=== PATIENT | male | born 1945 | race Two or more races ===

== ENCOUNTER 2018-05-08 16:08 | Inpatient (IN) | payer OTHER, MEDICAID ==
[~2018-05-08] VITALS: Ht 177.8 cm; Wt 83.9 kg
[2018-05-08] MEDS ORDERED: SODIUM CHLORIDE 0.9% 1,000 ML IV ONE ×3 (16:45→20:39)
[2018-05-08 17:33] LABS: BG BASE EXCESS -23.6 mmol/L (-2.0-2.0); BG CARBOXYHEMOGLOBIN 0.5 % (0.5-1.5); BG METHEMOGLOBIN 0.2 % (0.0-1.5); BG OXYHEMOGLOBIN 96.3 % (94.0-97.0); BG PCO2 13.2 mmHg (35.0-45.0); BG PH 7.097 (7.350-7.450); BG PO2 120.2 mmHg (75.0-100.0); BG SAMPLE SITE RIGHT BRACHIAL; BG TOTAL HEMOGLOBIN 10.6 g/dL (12.0-18.0); BG VENT MODE ROOM AIR
[2018-05-08 17:41] LABS: HEMATOCRIT. 35.8 % (42.0-52.0); HEMOGLOBIN. 10.3 g/dL (14.0-18.0); MEAN CORPUSCULAR HEMOGLOBIN 27.9 pg (28.0-32.0); MEAN CORPUSCULAR VOLUME 97.3 fL (80.0-94.0); MEAN PLATELET VOLUME 10.2 fl (7.4-10.4); PLATELET 209 x1000/uL (130-400); RED BLOOD CELL COUNT 3.68 mill/uL (4.7-6.1); RED CELL DISTRIBUTION WIDTH 16.6 % (11.6-14.6)
[2018-05-08 17:48] LABS: CHLORIDE 89 mEq/L (98-107); INR 1.1; PARTIAL THROMBOPLASTIN TIME 27.5 sec (23.4-31.0); PROTHROMBIN TIME 10.9 sec (9.1-11.1)
[2018-05-08 17:52] LABS: ETHANOL BLOOD < 10 mg/dL
[2018-05-08 17:58] LABS: PLATELET ESTIMATE NORMAL
[2018-05-08] MEDS ORDERED: FUROSEMIDE 100MG/10ML VIAL IV STA (18:03)
[2018-05-08] MEDS ORDERED: INSULIN REGULAR (DRIP) 100 UNITS in SODIUM CHLORIDE 0.9% 99 ML IV SCH (18:15)
[2018-05-08] MEDS ORDERED: SODIUM BICARBONATE 8.4% 1 MEQ/ML 50ML SYR IV ONE (18:15)
[2018-05-08] MEDS ORDERED: INSULIN REGULAR (HUMULIN R) 300UNITS/3ML IV ONE (18:15)
[2018-05-08] MEDS ORDERED: ALBUTEROL (0.083%) 2.5MG/3ML NEB HHN ONE (18:15)
[2018-05-08] MEDS ORDERED: ONDANSETRON HCL 4MG/2ML INJ IV PRN (18:45)
[2018-05-08] MEDS ORDERED: ACETAMINOPHEN 325MG TABLET PO PRN (18:45)
[2018-05-08] MEDS ORDERED: ENOXAPARIN 40MG/0.4ML SYR SUBCUT SCH (18:45)
[2018-05-08] MEDS ORDERED: MAGNESIUM/ALUMINUM HYDROXIDE/SIMETHICONE 30ML UDC PO PRN (18:45)
[2018-05-08 19:31] LABS: BETA HYDROXYBUTYRATE 13.3 mMol/L (0.0-0.3)
[2018-05-08] MEDS ORDERED: PIPERACILLIN/TAZ 3.375G PREMIX 50 ML IV ONE (21:00)
[2018-05-08] MEDS ORDERED: SODIUM CHLORIDE 0.9% 1000ML BAG (SEPSIS BOLUS) IV ONE (21:00)
[2018-05-08] MEDS ORDERED: VANCOMYCIN 1 G PREMIX 200 ML IV ONE (22:45)
[2018-05-08 23:10] LABS: CLARITY URINE CLEAR (CLEAR); COLOR URINE YELLOW (YELLOW); KETONES URINE 1+ (NEGATIVE); LEUKOCYTE ESTERASE URINE NEGATIVE (NEGATIVE); NITRITE URINE NEGATIVE (NEGATIVE); OCCULT BLOOD URINE 1+ (NEGATIVE); PROTEIN URINE NEGATIVE (NEGATIVE); SPECIFIC GRAVITY URINE 1.017 (1.005-1.030); UROBILINOGEN URINE 0.2 E.U./dL (0.2-1.0)
[2018-05-09 00:10] LABS: *AMPHETAMINES SCREEN URINE NEGATIVE (NEGATIVE); *BARBITURATES SCREEN URINE NEGATIVE (NEGATIVE); *BENZODIAZEPINES SCREEN URINE NEGATIVE (NEGATIVE); *COCAINE SCREEN URINE NEGATIVE (NEGATIVE); CANNABINOID URINE SCREEN PRESUMTIVE POSITIVE (NEGATIVE); METHADONE URINE SCREEN NEGATIVE (NEGATIVE); OPIATES URINE SCREEN NEGATIVE (NEGATIVE); PHENCYCLIDINE URINE SCREEN NEGATIVE (NEGATIVE)
[2018-05-09] MEDS ORDERED: INSULIN REGULAR (DRIP) 100 UNITS in SODIUM CHLORIDE 0.9% 99 ML IV SCH (03:00)
[2018-05-09] MEDS: SODIUM CHLORIDE 0.9% 1,000 ML IV SCH ×3 (03:01→22:47)
[2018-05-09] MEDS: PANTOPRAZOLE SODIUM 40 MG/VIAL IV SCH (03:17)
[2018-05-09 06:07] LABS: HEMATOCRIT. 33.8 % (42.0-52.0); HEMOGLOBIN. 11.1 g/dL (14.0-18.0); MEAN CORPUSCULAR HEMOGLOBIN 27.7 pg (28.0-32.0); MEAN CORPUSCULAR VOLUME 84.8 fL (80.0-94.0); PLATELET 198 x1000/uL (130-400); RED BLOOD CELL COUNT 3.99 mill/uL (4.7-6.1); RED CELL DISTRIBUTION WIDTH 15.2 % (11.6-14.6)
[2018-05-09 06:14] LABS: CHLORIDE 108 mEq/L (98-107)
[2018-05-09 06:32] LABS: BETA HYDROXYBUTYRATE 3.4 mMol/L (0.0-0.3)
[2018-05-09 07:14] LABS: PLATELET ESTIMATE NORMAL
[2018-05-09] MEDS ORDERED: INSULIN GLARGINE UD 100 UNITS/ML SYR SUBCUT NR (09:30)
[2018-05-09] MEDS ORDERED: LIDOCAINE HCL 1% 20ML VIAL (Pyxis) INJ ONE (11:13)
[2018-05-09 11:29] VITALS: BP 129/59
[2018-05-09 12:00] VITALS: BP 129/59
[2018-05-09] MEDS ORDERED: MORPHINE SULFATE 4 MG/ML CPJ (NOT FOR IM USE) IV PRN (12:00)
[2018-05-09] MEDS ORDERED: BLOOD SUGAR DIAGNOSTIC STRIP TEST SCH (12:20)
[2018-05-09] MEDS ORDERED: DEXTROSE 50% WATER 50ML SYRINGE IV PRN (12:30)
[2018-05-09] MEDS: INSULIN LISPRO 100 UNITS/ML SUBCUT SCH ×3 (12:42→20:30)
[2018-05-09] MEDS ORDERED: INSULIN LISPRO 100 UNITS/ML SUBCUT NR (13:15)
[2018-05-09] MEDS: ENOXAPARIN 30MG/0.3ML SYR SUBCUT SCH (13:26)
[2018-05-09] MEDS ORDERED: INSULIN GLARGINE UD 100 UNITS/ML SYR SUBCUT ONE (14:00)
[2018-05-09 15:38] VITALS: BP 129/59
[2018-05-09 16:00] VITALS: BP_SYST 140; BP_SYST 172; BP_DIAS 80; BP_DIAS 92
[2018-05-09] MEDS ORDERED: METO25TA6 PO (16:15)
[2018-05-09] MEDS ORDERED: FINA5TAB11 PO (16:15)
[2018-05-09] MEDS ORDERED: ATOR-2 PO (16:15)
[2018-05-09] MEDS ORDERED: PANT40TA4 PO (16:15)
[2018-05-09] MEDS ORDERED: TAMS0.4C31 PO (16:15)
[2018-05-09] MEDS ORDERED: TRAM50TA3 PO (16:15)
[2018-05-09] MEDS ORDERED: AMLO10TA80 PO (16:15)
[2018-05-09] MEDS ORDERED: SAXA5TAB PO (16:15)
[2018-05-09] MEDS ORDERED: CLOP75TA16 PO (16:15)
[2018-05-09] MEDS ORDERED: METF-416 PO (16:15)
[2018-05-09] MEDS: BLOOD SUGAR DIAGNOSTIC STRIP TEST SCH ×2 (16:49→20:30)
[2018-05-09] MEDS: CLONIDINE 0.1MG TABLET PO PRN (17:25)
[2018-05-09 20:00] VITALS: BP 135/69
[2018-05-10] VITALS: BP 142/72
[2018-05-10 04:00] VITALS: BP 148/89
[2018-05-10] MEDS: BLOOD SUGAR DIAGNOSTIC STRIP TEST SCH ×4 (06:42→20:32)
[2018-05-10] MEDS: INSULIN LISPRO 100 UNITS/ML SUBCUT SCH ×4 (07:18→20:32)
[2018-05-10 08:00] VITALS: BP 167/115
[2018-05-10] MEDS: SODIUM CHLORIDE 0.9% 1,000 ML IV SCH (09:04)
[2018-05-10] MEDS: PANTOPRAZOLE SODIUM 40 MG/VIAL IV SCH (09:04)
[2018-05-10] MEDS: CLONIDINE 0.1MG TABLET PO PRN (09:05)
[2018-05-10] MEDS ORDERED: INSULIN GLARGINE UD 100 UNITS/ML SYR SUBCUT SCH (10:00)
[2018-05-10] MEDS: INSULIN GLARGINE UD 100 UNITS/ML SYR SUBCUT SCH (10:24)
[2018-05-10] MEDS: AMLODIPINE 10MG TABLET PO SCH (10:45)
[2018-05-10] MEDS: TAMSULOSIN HCL 0.4MG SR CAPSULE PO SCH (10:45)
[2018-05-10] MEDS ORDERED: GUAIFENESIN 200MG/10ML SUGAR FREE UDC PO PRN (11:30)
[2018-05-10 12:00] VITALS: BP 101/60
[2018-05-10] MEDS ORDERED: LEVOFLOXACIN 500MG PREMIX 100 ML IV SCH ×2 (13:45→15:00)
[2018-05-10] MEDS: METRONIDAZOLE 500MG TABLET PO SCH ×2 (13:47→20:48)
[2018-05-10] MEDS: ENOXAPARIN 30MG/0.3ML SYR SUBCUT SCH (13:47)
[2018-05-10] MEDS: CLOPIDOGREL 75MG TABLET PO SCH (13:47)
[2018-05-10 14:23] LABS: BG BASE EXCESS 1.1 mmol/L (-2.0-2.0); BG CARBOXYHEMOGLOBIN 0.3 % (0.5-1.5); BG DEOXYHEMOGLOBIN 3.4 % (0.0-5.0); BG HCO3 ACT 23.4 mmol/L (22.0-26.0); BG METHEMOGLOBIN 0.2 % (0.0-1.5); BG OXYGEN SATURATION 96.6 % (92.0-98.5); BG OXYHEMOGLOBIN 96.1 % (94.0-97.0); BG PCO2 29.8 mmHg (35.0-45.0); BG PH 7.513 (7.350-7.450); BG PO2 83.4 mmHg (75.0-100.0); BG SAMPLE SITE RIGHT RADIAL; BG TOTAL HEMOGLOBIN 11.7 g/dL (12.0-18.0); BG VENT MODE ROOM AIR
[2018-05-10] MEDS ORDERED: IPRATROPIUM/ALBUTEROL 0.5-3(2.5)MG/3ML NEB ONE (15:16)
[2018-05-10] MEDS: IPRATROPIUM/ALBUTEROL 0.5-3(2.5)MG/3ML NEB HHN SCH ×2 (15:20→20:08)
[2018-05-10] MEDS: BUDESONIDE 0.5MG/2ML NEB HHN SCH (15:20)
[2018-05-10] MEDS: GUAIFENESIN 600MG ER TABLET PO SCH ×2 (15:58→20:48)
[2018-05-10 16:00] VITALS: BP 129/75
[2018-05-10 20:05] VITALS: BP 147/93
[2018-05-10 20:12] LABS: HEMATOCRIT. 35.8 % (42.0-52.0); HEMOGLOBIN. 11.7 g/dL (14.0-18.0); MEAN CORPUSCULAR HEMOGLOBIN 27.7 pg (28.0-32.0); MEAN CORPUSCULAR VOLUME 84.6 fL (80.0-94.0); PLATELET 176 x1000/uL (130-400); RED BLOOD CELL COUNT 4.23 mill/uL (4.7-6.1); RED CELL DISTRIBUTION WIDTH 15.3 % (11.6-14.6)
[2018-05-10 20:21] LABS: CHLORIDE 113 mEq/L (98-107)
[2018-05-10 20:31] LABS: HDL CHOLESTEROL 54 mg/dL (40-59)
[2018-05-10 20:32] LABS: LDL CHOLESTEROL 33 mg/dL (5-100)
[2018-05-10 20:34] LABS: PLATELET ESTIMATE NORMAL
[2018-05-10] MEDS: ATORVASTATIN CALCIUM 40MG TABLET PO SCH (20:48)
[2018-05-11] VITALS (7 sets, daily range): BP systolic 116–161; BP diastolic 78–98
[2018-05-11] MEDS: BUDESONIDE 0.5MG/2ML NEB HHN SCH ×3 (00:51→20:51)
[2018-05-11] MEDS: IPRATROPIUM/ALBUTEROL 0.5-3(2.5)MG/3ML NEB HHN SCH ×3 (00:51→20:50)
[2018-05-11] MEDS: BLOOD SUGAR DIAGNOSTIC STRIP TEST SCH ×4 (06:20→20:19)
[2018-05-11] MEDS: METRONIDAZOLE 500MG TABLET PO SCH ×3 (06:20→20:46)
[2018-05-11 06:41] LABS: HEMATOCRIT 36.6 % (42.0-52.0); MEAN CORPUSCULAR HEMOGLOBIN 27.7 pg (28.0-32.0); MEAN CORPUSCULAR VOLUME 84.9 fL (80.0-94.0); PLATELET 176 x1000/uL (130-400); RED BLOOD CELL COUNT 4.31 mill/uL (4.7-6.1); RED CELL DISTRIBUTION WIDTH 15.2 % (11.6-14.6)
[2018-05-11] MEDS: INSULIN LISPRO 100 UNITS/ML SUBCUT SCH ×4 (07:50→20:19)
[2018-05-11] MEDS: TAMSULOSIN HCL 0.4MG SR CAPSULE PO SCH (08:51)
[2018-05-11] MEDS: CLOPIDOGREL 75MG TABLET PO SCH (08:52)
[2018-05-11] MEDS: AMLODIPINE 10MG TABLET PO SCH (08:52)
[2018-05-11] MEDS: GUAIFENESIN 600MG ER TABLET PO SCH ×2 (08:52→20:46)
[2018-05-11] MEDS: PANTOPRAZOLE SODIUM 40 MG/VIAL IV SCH (08:52)
[2018-05-11] MEDS: INSULIN GLARGINE UD 100 UNITS/ML SYR SUBCUT SCH (10:33)
[2018-05-11] MEDS: LEVOFLOXACIN 250MG PREMIX 50 ML IV SCH (13:23)
[2018-05-11] MEDS: ENOXAPARIN 30MG/0.3ML SYR SUBCUT SCH (13:30)
[2018-05-11] MEDS ORDERED: POTASSIUM CHLORIDE 20MEQ TABLET SR PO NR ×2 (14:45→23:15)
[2018-05-11] MEDS: SODIUM CHLORIDE 0.45% 1,000 ML IV SCH (15:01)
[2018-05-11] MEDS ORDERED: KCL 20MEQ/100ML PREMIX 100 ML IV NR (16:00)
[2018-05-11] MEDS: ATORVASTATIN CALCIUM 40MG TABLET PO SCH (20:46)
[2018-05-12] VITALS: BP 161/71
[2018-05-12] MEDS: IPRATROPIUM/ALBUTEROL 0.5-3(2.5)MG/3ML NEB HHN SCH ×3 (02:02→14:46)
[2018-05-12 04:00] VITALS: BP 144/95
[2018-05-12] MEDS: METRONIDAZOLE 500MG TABLET PO SCH ×2 (05:55→12:56)
[2018-05-12] MEDS: BLOOD SUGAR DIAGNOSTIC STRIP TEST SCH ×3 (06:29→17:20)
[2018-05-12] MEDS: SODIUM CHLORIDE 0.45% 1,000 ML IV SCH (07:25)
[2018-05-12 08:00] VITALS: BP 133/81
[2018-05-12 08:01] LABS: HEMATOCRIT 36.5 % (42.0-52.0); MEAN CORPUSCULAR HEMOGLOBIN 27.7 pg (28.0-32.0); MEAN CORPUSCULAR VOLUME 84.4 fL (80.0-94.0); PLATELET 163 x1000/uL (130-400); RED BLOOD CELL COUNT 4.32 mill/uL (4.7-6.1); RED CELL DISTRIBUTION WIDTH 15.3 % (11.6-14.6)
[2018-05-12 08:24] LABS: CHLORIDE 102 mEq/L (98-107)
[2018-05-12] MEDS: BUDESONIDE 0.5MG/2ML NEB HHN SCH (09:16)
[2018-05-12] MEDS: GUAIFENESIN 600MG ER TABLET PO SCH (09:23)
[2018-05-12] MEDS: TAMSULOSIN HCL 0.4MG SR CAPSULE PO SCH (09:23)
[2018-05-12] MEDS: AMLODIPINE 10MG TABLET PO SCH (09:23)
[2018-05-12] MEDS: CLOPIDOGREL 75MG TABLET PO SCH (09:23)
[2018-05-12] MEDS: PANTOPRAZOLE SODIUM 40 MG/VIAL IV SCH (09:24)
[2018-05-12] MEDS: INSULIN LISPRO 100 UNITS/ML SUBCUT SCH ×2 (09:40→12:57)
[2018-05-12 12:53] VITALS: BP 117/83
[2018-05-12] MEDS: LEVOFLOXACIN 250MG PREMIX 50 ML IV SCH (12:56)
[2018-05-12] MEDS: INSULIN GLARGINE UD 100 UNITS/ML SYR SUBCUT SCH (12:57)
[2018-05-12 15:01] VITALS: BP 117/83
[2018-05-12] MEDS ORDERED: ENOXAPARIN 40MG/0.4ML SYR SUBCUT SCH (17:00)
[2018-05-13] MEDS ORDERED: LEVOFLOXACIN 500MG TABLET PO SCH (11:00)
== END 2018-05-12 18:51 | disposition home or self-care (01) | DRG 637 ==
LOC: EDBD 16:08 → ER 16:08 → SUPCPDRO 18:33 → 6WST 05-09 08:37 → EDBEDREQTM 05-09 08:39 → EDBEDREQ 05-09 08:39 → EDBEDREQDT 05-09 08:39 → EDBEDREQSVC 05-09 08:39 → ENRESERV 05-09 09:48
PROVIDERS: ADMIT Internal Medicine; ATTEND Internal Medicine
DX: E11.10 Type 2 diabetes mellitus with ketoacidosis without coma (principal); K85.90 Acute pancreatitis without necrosis or infection, unspecified; G93.41 Metabolic encephalopathy; J98.11 Atelectasis; N17.9 Acute kidney failure, unspecified; E87.5 Hyperkalemia; D64.9 Anemia, unspecified; E11.22 Type 2 diabetes mellitus with diabetic chronic kidney disease; E11.649 Type 2 diabetes mellitus with hypoglycemia without coma; E78.00 Pure hypercholesterolemia, unspecified; K52.9 Noninfective gastroenteritis and colitis, unspecified; E86.0 Dehydration; E87.6 Hypokalemia; I12.9 Hypertensive chronic kidney disease with stage 1 through stage 4 chronic kidney disease, or unspecified chronic kidney disease; J06.9 Acute upper respiratory infection, unspecified; J44.9 Chronic obstructive pulmonary disease, unspecified; N18.9 Chronic kidney disease, unspecified; N40.0 Benign prostatic hyperplasia without lower urinary tract symptoms; Z79.4 Long term (current) use of insulin; Z91.14 Patient's other noncompliance with medication regimen; Z91.19 Patient's noncompliance with other medical treatment and regimen; Z79.84 Long term (current) use of oral hypoglycemic drugs; Z79.899 Other long term (current) drug therapy
CPT/HCPCS: 36415; 36600; 71045; 76700; 80048; 80061; 80076; 80305; 82010; 82270; 82375; 82805; 82962; 83036; 83605; 83880; 84132; 84443; 84484; 85007; 85027; 87015; 87045; 87427; 87449; 87493; 87804; 93005; 93306; 93970; 94640; 97162; 99285; C9113; G0482; J1650; J1815; J1940; J1956; J2543; J3370; J3480; J3490; J7030; J7050; J7620; J7626; A4315